=== PATIENT | male | born 1990 | race American Indian/Alaskan Native ===

== ENCOUNTER 2020-12-15 12:26 | Emergency (ER) | payer SELFPAY ==
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
[2020-12-15 13:56] VITALS: BP 138/93
== END 2020-12-15 14:37 | disposition home or self-care (01) ==
LOC: ED 12:26
DX: S80.01XA Contusion of right knee, initial encounter (principal); S02.5XXA Fracture of tooth (traumatic), initial encounter for closed fracture; S16.1XXA Strain of muscle, fascia and tendon at neck level, initial encounter; Z79.899 Other long term (current) drug therapy; V49.49XA Driver injured in collision with other motor vehicles in traffic accident, initial encounter; Y93.89 Activity, other specified; Y92.488 Other paved roadways as the place of occurrence of the external cause; Y99.8 Other external cause status
CPT/HCPCS: 72040; 99283